=== PATIENT | male | born 1945 | race Hispanic/Latino ===

== ENCOUNTER 2021-05-08 05:46 | Observation (INO) | payer OTHER ==
[2021-05-03 10:44] LABS: BASOPHILS % (AUTO) 0.7 % (0.0-5.0); EOSINOPHILS % (AUTO) 2.6 % (0.0-8.0); HEMATOCRIT 48.7 % (42-54); LYMPHOCYTES % (AUTO) 26.1 % (21.0-51.0); MEAN CORPUSCULAR HEMOGLOBIN 29.4 pg (27.0-33.0); MEAN CORPUSCULAR HGB CONC 30.4 g/dL (32.0-36.0); MEAN CORPUSCULAR VOLUME 96.8 fL (79-99); MONOCYTES % (AUTO) 8.8 % (3.0-13.0); NEUTROPHILS % (AUTO) 61.5 % (40.0-77.0); PLATELET COUNT (AUTO) 154 K/uL (130-400); RED BLOOD CELL COUNT(AUTO) 5.03 MIL/uL (4.50-6.20); RED CELL DISTRIBUTION WIDTH 13.2 % (11.0-15.5); WHITE BLOOD COUNT (AUTO) 10.7 K/uL (4.8-10.8)
[2021-05-03 11:11] LABS: CREATININE 1.5 mg/dL (0.5-1.5)
[2021-05-03 11:29] LABS: POTASSIUM 5.9 mmol/L (3.5-5.1)
[2021-05-03 11:32] LABS: PROTHROMBIN TIME 10.9 SEC (9.6-11.6)
[2021-05-03 11:33] LABS: PARTIAL THROMBOPLASTIN TIME 26.4 SEC (26.3-35.5)
[2021-05-08] VITALS (19 sets, daily range): BP systolic 99–155; BP diastolic 50–84
[~2021-05-08] VITALS: Ht 165.1 cm; Wt 107.6 kg
[~2021-05-08 05:46] MED LIST: ASPI-1443 PO; CITA10TA7 PO; EMPA25TA PO; FLUT1BLS3 IH; FURO40TA5 PO; LISI40TA9 PO; METF-444 PO; ROSU5TAB12 PO
[2021-05-08] MEDS ORDERED: CEFAZOLIN SODIUM 1 GM VIAL IVP SCH (06:00)
[2021-05-08] MEDS ORDERED: 0.9% NACL 500ML IV.SOLN 500 ML IV SCH (06:00)
[2021-05-08] MEDS ORDERED: 0.9%NACL 1000ML 1,000 ML IV ONE (06:34)
[2021-05-08 07:11] LABS: CREATININE 1.6 mg/dL (0.5-1.5); POTASSIUM 5.8 mmol/L (3.5-5.1)
[2021-05-08] MEDS ORDERED: IODIXANOL 320 MG/ML 100 ML VIAL ONE (07:15)
[2021-05-08] MEDS ORDERED: BUPIVACAINE/PF 0.25% 30ML VIAL IJ ONE (07:15)
[2021-05-08] MEDS ORDERED: LIDOCAINE HCL 1% MDV 50ML VIAL ONE (07:16)
[2021-05-08] MEDS ORDERED: MIDAZOLAM HCL 1 MG/ML 2ML VIAL ONE ×3 (07:16→08:21)
[2021-05-08] MEDS ORDERED: MEPERIDINE-PF 50 MG/ML SYG ONE (07:16)
[2021-05-08] MEDS ORDERED: MEPERIDINE-PF 25 MG/ML SYG ONE ×2 (08:17→08:21)
[2021-05-08] MEDS ORDERED: FLUMAZENIL 0.1MG/1ML 5ML VIAL IV ONE (10:00)
[2021-05-08] MEDS ORDERED: TRAMADOL HCL 50 MG TABLET PO PRN (10:00)
[2021-05-08] MEDS: AMLODIPINE 5 MG TAB PO SCH (10:00)
[2021-05-08] MEDS: METFORMIN HCL 500 MG TABLET PO SCH (17:16)
[2021-05-08] MEDS ORDERED: CITALOPRAM 20 MG TABLET PO SCH (21:00)
[2021-05-09 00:16] VITALS: BP 137/62
[2021-05-09 03:53] LABS: BASOPHILS % (AUTO) 0.4 % (0.0-5.0); EOSINOPHILS % (AUTO) 1.2 % (0.0-8.0); HEMATOCRIT 46.4 % (42-54); LYMPHOCYTES % (AUTO) 20.4 % (21.0-51.0); MEAN CORPUSCULAR HEMOGLOBIN 29.6 pg (27.0-33.0); MEAN CORPUSCULAR VOLUME 95.5 fL (79-99); NEUTROPHILS % (AUTO) 66.6 % (40.0-77.0); PLATELET COUNT (AUTO) 163 K/uL (130-400); RED BLOOD CELL COUNT(AUTO) 4.86 MIL/uL (4.50-6.20); WHITE BLOOD COUNT (AUTO) 13.9 K/uL (4.8-10.8)
[2021-05-09 04:03] LABS: CREATININE 1.2 mg/dL (0.5-1.5); POTASSIUM 5.6 mmol/L (3.5-5.1)
[2021-05-09 04:16] VITALS: BP 121/59
[2021-05-09] MEDS: METFORMIN HCL 500 MG TABLET PO SCH (05:20)
[2021-05-09 07:15] VITALS: BP 123/57
[2021-05-09] MEDS ORDERED: VILANTER IH SCH (09:00)
[2021-05-09] MEDS ORDERED: ATORVASTATIN 10 MG TABLET PO SCH (09:00)
[2021-05-09] MEDS ORDERED: ASPIRIN 81 MG EC TAB PO SCH (09:00)
[2021-05-09] MEDS ORDERED: UMECLIDIN IH SCH (09:00)
[2021-05-09] MEDS ORDERED: LISINOPRIL 40 MG TABLET PO SCH (09:00)
[2021-05-09] MEDS ORDERED: **HM**(Empagliflozin (Jardiance) 25 MG PO SCH (09:00)
[2021-05-09] MEDS ORDERED: FLUTICASONE IH SCH (09:00)
[2021-05-09] MEDS ORDERED: [UNRECOGNIZED DRUG - OTHER] IH SCH (09:00)
[2021-05-09] MEDS: AMLODIPINE 5 MG TAB PO SCH (10:52)
[2021-05-09 11:07] VITALS: BP 150/61
[2021-05-09 15:31] VITALS: BP 143/57
[2021-05-09 15:33] LABS: ABG BASE EXCESS -3.6 mmol/L (-2.0-3.0); ABG HCO3 21.6 mmol/L (21.0-28.0); ABG OXYGEN SATURATION 88.6 % (95.0-99.0); ABG PCO2 40 mmHg (35-48)
== END 2021-05-09 16:52 | disposition home or self-care (01) ==
LOC: DAH 05:46 → DAHIP 05:47 → 4BH 11:05
PROVIDERS: ADMIT Internal Medicine; ATTEND Internal Medicine
DX: I44.1 Atrioventricular block, second degree (principal); I45.10 Unspecified right bundle-branch block; I49.5 Sick sinus syndrome; I10 Essential (primary) hypertension; J44.9 Chronic obstructive pulmonary disease, unspecified; E87.2 Acidosis; G47.30 Sleep apnea, unspecified; E11.65 Type 2 diabetes mellitus with hyperglycemia; E78.5 Hyperlipidemia, unspecified; E87.5 Hyperkalemia; E66.9 Obesity, unspecified; N28.9 Disorder of kidney and ureter, unspecified; F17.200 Nicotine dependence, unspecified, uncomplicated; Z79.82 Long term (current) use of aspirin; Z79.84 Long term (current) use of oral hypoglycemic drugs; Z95.0 Presence of cardiac pacemaker; Z68.39 Body mass index [BMI] 39.0-39.9, adult
CPT/HCPCS: 33208; 36415 ×3; 36600; 71045; 80048 ×3; 82803; 82948 ×7; 85025 ×2; 85610; 85730; 93005; 96360; 96361 ×2; A4215; A4216; A4221; A4222; A4223 ×3; A4606; A4663; C1785; C1898 ×2; G0378 ×31; J0690 ×2; J2175 ×2; J2250 ×2; J3490 ×3; J7030; 99156; 99157; Q9967